=== PATIENT | female | born 1950 | race Caucasian/White ===

== ENCOUNTER 2017-01-11 16:50 | Emergency (ER) | payer MEDICARE, MEDICAID ==
[~2017-01-11] VITALS: Ht 165.1 cm; Wt 97.0 kg
[~2017-01-11 16:50] MED LIST: ADULT ASPIRIN E81 MG PO; ASPIRIN EC81 MG PO; ATENOLOL50 MG PO; CALTRATE 600+D1 CHW PO; CENTRUM SILVER ULTRA PO; CIMETIDINE400 MG PO; CINNAMON PO; CIPROFLOXACN500 MG PO; FLEXERIL PO; GABAPENTIN300 MG PO; GLIPIZIDE10 MG PO; LISINOPRIL10 MG PO; LORTAB 1010 MG PO; METFORMIN500 MG PO; MIRALAX3350 NF PO; NAPROSYN500 MG PO; OXYBUTYNIN5 M1 PO; PRED FORTE1 % OP; PRILOSEC40 MG PO; RESTASIS0.05 % OP; ROBITUSSIN AC10 ML PO; ZPAK PO
[2017-01-11 17:49] VITALS: BP 141/65
== END 2017-01-11 18:50 | disposition home or self-care (01) ==
LOC: ED 16:50
DX: E11.649 Type 2 diabetes mellitus with hypoglycemia without coma (principal); Z79.84 Long term (current) use of oral hypoglycemic drugs; R53.1 Weakness; I10 Essential (primary) hypertension

== ENCOUNTER 2017-01-13 13:12 | Emergency (ER) | payer MEDICARE, MEDICAID ==
[~2017-01-13] VITALS: Ht 165.1 cm; Wt 90.0 kg
[2017-01-13 13:48] LABS: HEMATOCRIT 42.4 % (37.0-47.0); HEMOGLOBIN 13.3 g/dl (12.0-16.0); IMMATURE GRANULOCYTES 0.1 % (0.0-1.0); MEAN CORPUSCULAR HGB 28.2 pG CALC (26.0-32.0); MEAN CORPUSCULAR HGB CONC 31.4 g/L CALC (32.0-36.0); NEUT# 3.75 thou/uL (2.00-7.15); RED BLOOD COUNT 4.71 mill/uL (4.20-5.60); RED CELL DISTRI WIDTH 13.6 % (11.5-15.5)
[2017-01-13 14:14] LABS: ALBUMIN 4.8 g/dL (3.2-5.0); ALKALINE PHOSPHATASE 53 u/l (38-126); ANION GAP 20 (6-22 (CALC)); BILIRUBIN, TOTAL 0.4 mg/dL (0.0-1.4); BUN 16 mg/dL (8-23); BUN/CREATININE RATIO 18 (12-20 (CALC)); CALCIUM 9.8 mg/dL (8.4-10.2); CARBON DIOXIDE 23 mmol/l (22-30); CHLORIDE 104 mmol/l (95-108); CREATININE 0.9 mg/dL (0.5-1.0); GFR > 60 ML/MIN (>=60 (CALC)); GFR FOR AFR.AMER. > 60 ML/MIN (>=60 (CALC)); GLUCOSE 125 mg/dL (82-115); POTASSIUM 4.7 mmol/l (3.5-5.1); SGOT/AST 21 u/l (9-36); SGPT/ALT 27 u/l (11-66); SODIUM 143 mmol/l (137-146); TOTAL PROTEIN 8.4 g/dL (6.3-8.2)
[2017-01-13 14:26] LABS: MYOGLOBIN 35 ng/mL (0 - 62)
[2017-01-13 15:28] VITALS: BP 137/64
== END 2017-01-13 15:29 | disposition home or self-care (01) ==
LOC: ED 13:12
PROVIDERS: Emergency Medicine
DX: R53.1 Weakness (principal); I12.9 Hypertensive chronic kidney disease with stage 1 through stage 4 chronic kidney disease, or unspecified chronic kidney disease; E11.22 Type 2 diabetes mellitus with diabetic chronic kidney disease; N18.9 Chronic kidney disease, unspecified; K21.9 Gastro-esophageal reflux disease without esophagitis; R51 Headache; R94.31 Abnormal electrocardiogram [ECG] [EKG]

== ENCOUNTER 2017-06-30 18:35 | Emergency (ER) | payer MEDICARE, MEDICAID ==
[~2017-06-30] VITALS: Ht 165.1 cm; Wt 90.0 kg
[2017-06-30] MEDS ORDERED: LIPITOR20 MG PO (19:23)
[2017-06-30] MEDS ORDERED: BYETTA5 MCG/0.02 SC (19:24)
[2017-06-30] MEDS ORDERED: RANITIDINE75 M3 PO (19:25)
[2017-06-30 20:00] LABS: HEMATOCRIT 39.9 % (37.0-47.0); IMMATURE GRANULOCYTES 0.2 % (0.0-1.0); MEAN CELL VOLUME 89.7 fL CALC (80.0-100.0); MEAN CORPUSCULAR HGB 29.2 pG CALC (26.0-32.0); MEAN CORPUSCULAR HGB CONC 32.6 g/L CALC (32.0-36.0); NEUT# 3.95 thou/uL (2.00-7.15); RED BLOOD COUNT 4.45 mill/uL (4.20-5.60); RED CELL DISTRI WIDTH 13.1 % (11.5-15.5)
[2017-06-30 20:14] LABS: ALBUMIN 4.3 g/dL (3.2-5.0); BILIRUBIN, TOTAL 0.3 mg/dL (0.0-1.4); CREATININE 1.4 mg/dL (0.5-1.0); POTASSIUM 4.3 mmol/l (3.5-5.1); TOTAL PROTEIN 7.9 g/dL (6.3-8.2)
[2017-06-30 23:25] LABS: URINE BILIRUBIN - DIPSTICK NEGATIVE (NEGATIVE); URINE BLOOD DIPSTICK NEGATIVE (NEGATIVE); URINE COLOR YELLOW; URINE GLUCOSE - DIPSTICK >=1000 mg/dL (NEGATIVE); URINE KETONE NEGATIVE (NEGATIVE); URINE NITRITE - DIPSTICK NEGATIVE (Negative); URINE PH 5.5 (4.5-8.0); URINE PROTEIN - DIPSTICK NEGATIVE (NEG-TRACE); URINE UROBILINOGEN - DIPSTICK 0.2 E.U./dL (0.2)
[2017-06-30 23:29] LABS: URINE CLARITY TURBID
[2017-06-30 23:31] LABS: URINE BACTERIA MODERATE hpf; URINE LEUK ESTERASE SMALL (NEGATIVE); URINE MUCUS FEW hpf (NONE-FEW); URINE RBC 0-2 RBC/hpf (0-5); URINE SQUAMOUS EPITHELIAL CELL FEW EPI/hpf (0-FEW); URINE WBC 20-50 WBC/hpf (0-5)
[2017-06-30] MEDS ORDERED: BACTRIM DS1 TAB PO (23:42)
[2017-06-30 23:52] VITALS: BP 112/69
== END 2017-07-01 00:06 | disposition home or self-care (01) ==
LOC: ED 18:35
PROVIDERS: Family Medicine
DX: R51 Headache (principal); N39.0 Urinary tract infection, site not specified; B96.1 Klebsiella pneumoniae [K. pneumoniae] as the cause of diseases classified elsewhere; E11.22 Type 2 diabetes mellitus with diabetic chronic kidney disease; I12.9 Hypertensive chronic kidney disease with stage 1 through stage 4 chronic kidney disease, or unspecified chronic kidney disease; N18.9 Chronic kidney disease, unspecified

== ENCOUNTER 2022-11-25 08:35 | Day surgery (SDC) | payer MEDICARE ==
[~2022-11-25] VITALS: Ht 157.5 cm; Wt 79.8 kg
[~2022-11-25 08:35] MED LIST changes: +BACTRIM DS1 TAB PO; +BYETTA5 MCG/0.02 SC; +LIPITOR20 MG PO; +RANITIDINE75 M3 PO
[2022-11-25 09:57] VITALS: BP 145/66
== END 2022-11-25 10:15 | disposition home or self-care (01) ==
LOC: ENDO 08:35 → ORM 08:35 → ENDO 08:45 → ORM 10:15
PROVIDERS: ATTEND Physical Medicine & Rehabilitation Pain Medicine
DX: G89.4 Chronic pain syndrome (principal); M46.1 Sacroiliitis, not elsewhere classified; M53.3 Sacrococcygeal disorders, not elsewhere classified; M25.561 Pain in right knee; M25.562 Pain in left knee
CPT/HCPCS: G0260; Q9966